=== PATIENT | female | born 1950 | race Caucasian/White ===

== ENCOUNTER → 2017-04-26 | Day surgery (SDC) | payer MEDICARE ==
[~2017-04-26] MED LIST: ATOR10TA60 PO; CALC-98 PO; DEXT10CA2 PO; DEXT10TA2 PO; ECHI125T PO; FAMO10TA69 PO; FLUO40CA2 PO; FLUT9.9S NS; IV RINGERS,LACTATED 1000ML 1,000 ML IV SCH; LIDOCAINE 1% PF 2 ML VIAL. ID PRN; LIDOCAINE 2% PF Vial for OR 5 ML VIAL. ONE; LORA-176 PO; LORA10TA55 PO; METF500T9 PO; MIDAZOLAM HCL/PF 2 MG/2 ML VIAL. IV PRN; PROPOFOL 40 ML IV ONE; TRAM50TA PO; VITA200C28 PO; fentaNYL PF VIAL 100 MCG/2 ML VIAL IV PRN; tylenol PM PO
--- NOTE | 2017-04-26 12:14 | PDOC1 ---
History and Physical Date of Admission Date of Admission DATE: 04/26/17 TIME: 12:07 Source Source: Chart review, Patient History of Present Illness History of Present Illness 66 y/o female with h/o 2 colon resections for large adenomas with atypia, first in 2003 and secondly in 2011, with transverse colectomy and right hemicolectomy respectively. Presents for surveillance colonoscopy (last in 2013). Denies any problems currently. Has h/o reflux. Past Medical History Cardiovascular: Hyperlipidemia Psych: Depression, Other (ADHD) Musculoskeletal: Osteoarthritis Endocrine: Other ("pre-diabetes") Past Surgical History Past Surgical History: Appendectomy, Hernia Repair (ventral), Hysterectomy ( with USO), Colectomy (x 2) Family History Family History: Cancer (breast, colon), Coronary Artery Disease, Diabetes, Hypertension, Stroke Social History Smoke: 1 pack per day ALCOHOL: none Drugs: None Current Medications Current Medications Current Medications Midazolam HCl (Versed) 2 mg PRN 1X PRN IV PRIOR TO PROCEDURE; Start 04/26/17 at 12:00; Stop 04/27/17 at 11:59 Fentanyl Citrate (Fentanyl 2ml Vial) 25 mcg PRN Q5MIN PRN IV X 2 DOSES FOR PAIN ; Start 04/26/17 at 12:00; Stop 04/27/17 at 11:59 Fentanyl Citrate (Fentanyl 2ml Vial) 50 mcg PRN Q5MIN PRN IV X 2 DOSES FOR PAIN ; Start 04/26/17 at 12:00; Stop 04/27/17 at 11:59 Ringer's Solution 1,000 ml @ 125 mls/hr Q8H IV Last administered on 04/26/17t 11:49; Start 04/26/17 at 11:49; Stop 04/26/17 at 23:48 Lidocaine HCl (Xylocaine-Mpf 1% Vial) 2 ml 1X PRN PRN ID IV START; Start at 12:00; Stop 04/27/17 at 11:59 Fentanyl Citrate (Fentanyl 2ml Vial) 50 mcg PRN Q5MIN PRN IV X 2 DOSES FOR PAIN ; Start 04/26/17 at 12:00; Stop 04/27/17 at 11:59 Ringer's Solution 1,000 ml @ 125 mls/hr Q8H IV ; Start 04/26/17 at 11:51; Stop 04/26/17 at 23:50 Propofol 40 ml @ As Directed STK-MED ONCE IV ; Start 04/26/17 at 12:01; Stop at 12:02; Status DC Lidocaine HCl (Lidocaine Pf 2% Vial) 5 ml STK-MED ONCE .ROUTE ; Start 04/26/17 at 12:01; Stop 04/26/17 at 12:02; Status DC Active Scripts Active Reported Flonase Allergy Relief (Fluticasone Propionate) 9.9 Ml [place].susp 2 Sprays NS DAILY Dextroamphetamine Sulfate 10 Mg Tablet 5 Mg PO Loratadine-D 12 Hour Tablet (Loratadine/Pseudoephedrine) 1 Each Tab.er.12h 1 Each PO [tylenol PM] PO HS Tramadol Hcl 50 Mg Tablet 1 Tab PO TID Vitamin E (Vitamin E (Dl,Tocopheryl Acet)) 200 Unit Capsule 200 Unit PO DAILY Famotidine 10 Mg Tablet 10 Mg PO HS Calcium + Vitamin D Tablet (Calcium Carbonate/Vitamin D3) 1 Each Tablet 1 Each PO DAILY Echinacea (Echinacea Purpurea Extract) 125 Mg Tablet 125 Mg PO DAILY Fluoxetine Hcl 40 Mg Capsule 1 Cap PO DAILY Loratadine 10 Mg Tab.rapdis 10 Mg PO DAILY Dextroamp-Amphet Er 10 Mg Cap (Dextroamphetamine/Amphetamine) 10 Mg Cap.er.24h 5 Mg PO Allergies Allergies: Coded Allergies: Sulfa (Sulfonamide Antibiotics) (Verified Allergy, Intermediate, RED EYES , BLISTERS,HIVES, 04/26/17) fluconazole (Verified Allergy, Intermediate, Hives, 07/29/14) hydrocodone (Verified Allergy, Intermediate, Itching, 04/26/17) nalbuphine (Verified Allergy, Intermediate, HALUCINATIONS, HIVES, SKIN BURNING, 07/29/14) ampicillin (Verified Adverse Reaction, Intermediate, Diarrhea, 07/29/14) codeine (Verified Adverse Reaction, Intermediate, NIGHTMARES, 07/29/14) iodine (Verified Adverse Reaction, Intermediate, VOMITING , DIARRHEA, ) shellfish derived (Verified Adverse Reaction, Intermediate, VOMITING, DIARRHEA, 07/29/14) Uncoded Allergies: METAL (Allergy, Mild, Hives, 07/29/14) ROS Review of System Otherwise negative. Physical Exam General: Alert, Oriented X3, Cooperative, No acute distress Lungs: Clear to auscultation Heart: S1S2, RRR, no gallops, no murmurs Abdomen: Normal bowel sounds, Soft, No tenderness, No hepatosplenomegaly, No masses, Other (multiple surgical scars) Rectal Exam: deferred Extremities: No cyanosis, No edema Skin: No significant lesion Neuro: Normal speech, Strength at 5/5 X4 ext, Normal tone, Sensation intact, Cranial nerves 3-12 NL, Reflexes 2+ Psych/Mental Status: Mental status NL, Mood NL Vitals Vitals Vital Signs Date Time Temp Pulse Resp B/P (MAP) Pulse Ox O2 Delivery O2 Flow Rate FiO2 04/26/17 11:40 97.2 79 20 97 97.2 VTE Prophylaxis Ordered VTE Prophylaxis Devices: No VTE Pharmacological Prophylaxi: No Assessment/Plan Assessment/Plan IMP: H/o multiple advanced adenomas, due for surveillance. PLAN: colonoscopy. BRANDT KHAN MD Apr 26, 2017 12:14
--- NOTE | 2017-04-26 12:55 | PDOC4 ---
PROCEDURE Procedure Colonoscopy with biopsies. IND: h/o advanced adenomas/prior resections for interval lesions. Meds: per anesthesia. Findings: VASU normal. To IC anastomosis ~hepatic flexure. Mucosa normal. Occasional tics, sigmoid. Small polyps splenic flexure, proximal sigmoid, distal sigmoid, rectum; removed. Tattoo in proximal sigmoid near the polyps there. Small IH's. Exam otherwise normal. IMP: Small polyps. Diverticulosis s/p colon resection. Internal hemorrhoids. REC: Resume home meds and diet. Await path. F/u in office in 2 weeks. Repeat exam in 3 years. BRANDT KHAN MD Apr 26, 2017 12:55
[2017-04-26 12:57] VITALS: BP 154/91
--- NOTE | 2017-04-27 14:07 | PATHOLOGY ---
PATHOLOGY REPORT * * * * * * * * FINAL DIAGNOSIS: A. Colon, splenic flexure, biopsy: - Adenomatous polyp. - Mild to moderate acute and chronic inflammation. B. Colon, proximal sigmoid, biopsy: - Hyperplastic polyps, multiple fragments. C. Colon, distal sigmoid, biopsy: - Hyperplastic polyps, multiple fragments. (SKM:aline; 04/27/2017) REPORT ELECTRONICALLY SIGNED BY: Sorin Jaimes M.D. DATE/TIME: 04/27/2017 14:06 * * * * * * * * GROSS PATHOLOGY: A. Received in formalin labeled "Mellissa Munson, splenic flexure polyp," is a segment of lester soft tissue measuring 0.4 cm in maximum dimension. The specimen is submitted entirely in cassette A1. B. Received in formalin labeled "proximal sigmoid polyp," are multiple segments of lester soft tissue measuring from 0.2 up to 0.4 cm in maximum dimension. The specimen is submitted entirely in cassette B1. C. Received in formalin labeled "distal sigmoid polyp," are multiple segments of lester soft tissue measuring from 0.1 up to 0.3 cm in maximum dimension. The specimen is submitted entirely in cassette C1. ([facility]; 04/26/17) INITIAL CPT CODE(S): A; 57488 B; 03114 C; 78410 Professional services performed by [facility] [place] [address] Technical services performed by [facility] at [address] [place] [address] [address], [place] [address]. SPECIMEN(S) RECEIVED: A.Splenic flexure polyp B.Proximal sigmoid polyp C.Distal sigmoid polyp CLINICAL HISTORY: History of polyps PATIENT: MELLISSA MUNSON /AGE: 512/20/1950 (Age: 66) PATIENT #: [id number] ALT CASE #: SPECIMEN COLLECTION DATE: 04/26/2017 SPECIMEN RECEIVED DATE: 04/26/2017 [facility] - [address] [place] [address] - PHONE: [phone] * * * END OF REPORT * * *
== END | disposition home or self-care (01) ==
LOC: ENDOS 11:11
PROVIDERS: ATTEND Internal Medicine Gastroenterology
DX: Z09 Encounter for follow-up examination after completed treatment for conditions other than malignant neoplasm (principal); Z87.19 Personal history of other diseases of the digestive system; D12.5 Benign neoplasm of sigmoid colon; D12.3 Benign neoplasm of transverse colon; K62.1 Rectal polyp; K64.8 Other hemorrhoids; Z98.0 Intestinal bypass and anastomosis status; K57.30 Diverticulosis of large intestine without perforation or abscess without bleeding; G62.9 Polyneuropathy, unspecified; E78.00 Pure hypercholesterolemia, unspecified; J44.9 Chronic obstructive pulmonary disease, unspecified; K21.9 Gastro-esophageal reflux disease without esophagitis; Z90.710 Acquired absence of both cervix and uterus; Z87.39 Personal history of other diseases of the musculoskeletal system and connective tissue; M19.91 Primary osteoarthritis, unspecified site; F41.9 Anxiety disorder, unspecified; Z83.3 Family history of diabetes mellitus; Z82.49 Family history of ischemic heart disease and other diseases of the circulatory system; Z88.2 Allergy status to sulfonamides; Z88.6 Allergy status to analgesic agent; Z88.1 Allergy status to other antibiotic agents; Z88.3 Allergy status to other anti-infective agents; Z91.013 Allergy to seafood
CPT/HCPCS: 45380; 45381; 88305; J2704; J2001